=== PATIENT | female | born 1990 | race Caucasian/White ===

== ENCOUNTER 2022-01-25 06:18 | Emergency (ER) | payer MEDICAID, OTHER ==
--- NOTE | 2022-01-25 07:25 | ED Physician Documentation ---
PD HPI SKIN - Stated complaint Stated Complaint: BUG BITE LT FOOT - Chief complaint Chief Complaint: Wound - History obtained from History obtained from: Patient - History of Present Illness Timing - onset: How many days ago (4) Timing - duration: Days (4) Timing - details: Gradual onset, Still present Location: LLE Quality / character: Discolored, Crusted, Swelling, Draining Associated symptoms: Myalgias. No: Fever, Joint pain, Headache, Facial swelling, Dyspnea, Abd pain, N/V/D, Urinary sx Contributing factors: Insect bite /sting Similar symptoms before: Has not had sx before Recently seen: Not recently seen - Additional information Additional information: Previously well 31-year-old female has developed a tender area on the outer aspect of her left foot about 4 days ago. She felt this might be a spider bite it has become red and swollen the skin is broken open and drained. She has swelling out of her foot that is extending up into her ankle. She is having pain with weightbearing. She did not injure this foot otherwise. She does have shoes that she keeps in her hallway that have been present for some time before the last time she wore them. Review of Systems Constitutional: reports: Myalgias, Fatigue. denies: Fever, Chills Eyes: denies: Decreased vision Nose: denies: Congestion Throat: denies: Sore throat Respiratory: denies: Cough GI: denies: Nausea, Vomiting : denies: Dysuria Skin: reports: Bite / sting Musculoskeletal: reports: Extremity pain, Extremity swelling, Pain with weight bearing. denies: Neck pain, Back pain Neurologic: denies: Generalized weakness, Focal weakness, Numbness PD PAST MEDICAL HISTORY - Past Medical History Past Medical History: No - Past Surgical History Past Surgical History: No - Present Medications Home Medications: Ambulatory Orders Medication Instructions Recorded Confirmed Sulfamethox/Trimeth 800/160 1 each PO BID #14 tablet 01/25/22 [Bactrim Ds] cephALEXin [Keflex] 500 mg PO Q6H #28 cap 01/25/22 - Allergies Allergies/Adverse Reactions: Allergies Allergy/AdvReac Type Severity Reaction Status Date / Time No Known Drug Allergies Allergy Verified 01/25/22 06:30 - Social History Does the pt smoke?: No Smoking Status: Never smoker Does the pt drink ETOH?: No Does the pt have substance abuse?: No - Immunizations Immunizations are current?: Yes - POLST Patient has POLST: No PD ED PE NORMAL - Vitals Vital signs reviewed: Yes (Tachycardic and hypertensive) - General General: Alert and oriented X 3, No acute distress, Well developed/nourished - HEENT HEENT: Atraumatic, PERRL, EOMI - Respiratory Respiratory: No respiratory distress - Derm Derm: Normal color, Warm and dry, No rash - Extremities Extremities: Other (There is a 2 cm ulceration to the left foot over the midshaft of the left fifth metatarsal. There is surrounding erythema and erythema extending to the dorsum of the foot. There is no lymphangitic streaking. 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 She does have some cellulitic cellulitis extending onto the dorsum of the foot. She is administered Rocephin IM and we will place her on double antibiotic therapy with Keflex and Septra. I have asked the patient to use a warm compress and to return to the emergency department should she have progression of symptoms. A wound culture has been obtained. Departure - Departure Disposition: 01 Home, Self Care Clinical Impression: Abscess or cellulitis of foot Condition: Stable Instructions: ED Infec Skin Cellulitis, ED Staph Infec Abx Tx Only Follow-Up: [facility] [Provider Group] Prescriptions: Sulfamethox/Trimeth 800/160 [Bactrim Ds] 1 each PO BID #14 tablet cephALEXin [Keflex] 500 mg PO Q6H #28 cap Comments: Pamela, today it looks like you have an infection under the skin likely from a spider bite and this looks like it is draining adequately. Our expectations with treatment are for daily improvement. If you have worsening despite starting this treatment it is imperative to return to the hospital for treatment of cellulitis failing outpatient management. I have prescribed antibiotic for this infection and the medications have been e-scribed to [facility] in [place]. The antibiotic and your infection fighting cells only go where the blood goes and the recommendation is to use a warm compress (wash cloth soaked in warm water) for 10 minutes 2-3 times per day to encourage blood supply into the area.
[2022-01-25] MEDS: cefTRIAXone 1 GM VIAL IM STA (07:32)
[2022-01-25] MEDS: LIDOCAINE 1% 2 ML VIAL MC ONE (07:32)
[2022-01-25 07:48] VITALS: BP 132/80
== END 2022-01-25 07:48 | disposition home or self-care (01) ==
LOC: ED 06:18
DX: L03.116 Cellulitis of left lower limb (principal)
CPT/HCPCS: 87070; 87205; 96372; 99282; 99283

== ENCOUNTER 2022-04-15 17:09 | Outpatient (CLI) | payer MEDICAID ==
[2022-04-15 22:17] LABS: BACTERIAL VAGINOSIS DNA POSITIVE (NEGATIVE); CANDIDA GLABRATA DNA NEGATIVE (NEGATIVE); CANDIDA GROUP DNA NEGATIVE (NEGATIVE); CANDIDA KRUSEI DNA NEGATIVE (NEGATIVE); TRICHOMONAS VAGINALIS DNA POSITIVE (NEGATIVE)
[2022-04-16 00:10] LABS: NEISSERIA GONORRHOEAE DNA NEGATIVE (NEGATIVE)
[2022-04-16 00:12] LABS: CHLAMYDIA TRACHOMATIS DNA POSITIVE (NEGATIVE)
== END 2022-04-15 17:10 | disposition home or self-care (01) ==
LOC: LAB.N 17:09
PROVIDERS: ATTEND Nurse Practitioner
DX: Z11.3 Encounter for screening for infections with a predominantly sexual mode of transmission (principal)
CPT/HCPCS: 36415; 81514; 86592; 86695; 86696; 86803; 87389; 87491; 87591; 87661

== ENCOUNTER 2023-02-24 02:23 | Emergency (ER) | payer MEDICAID ==
[2023-02-24 02:34] VITALS: BP 129/78
== END 2023-02-24 03:28 | disposition left against medical advice (07) ==
LOC: ED 02:23
DX: Z53.21 Procedure and treatment not carried out due to patient leaving prior to being seen by health care provider (principal)

== ENCOUNTER 2023-08-16 19:10 | Outpatient (CLI) | payer MEDICAID ==
--- NOTE | 2023-08-17 09:00 | XRAY Report ---
PROCEDURE: Cervical Spine 2 View INDICATIONS: CERVICAL STRAIN WITH RADICULOPATHY TECHNIQUE: 4 view(s) of the cervical spine were acquired. COMPARISON: None. FINDINGS: Bones: No fractures or dislocations to the C7 level. The lateral masses of C1 appear intact on the odontoid view. No suspicious bony lesions. Moderate disc height loss at C5-6. Mild disc height loss at C4-5, C6-7. Soft tissues: No prevertebral soft tissue swelling. IMPRESSION: Mild to moderate, multilevel degenerative disease. Reviewed by: Elijah Rodriguez on 08/17/2023 8:58 AM PDT Approved by: Elijah Rodriguez on 08/17/2023 8:58 AM PDT Station ID: [id number]
== END 2023-08-16 23:59 | disposition home or self-care (01) ==
LOC: DI.S 19:10
PROVIDERS: ATTEND Physician Assistant Medical
DX: M47.812 Spondylosis without myelopathy or radiculopathy, cervical region (principal)

== ENCOUNTER 2023-09-17 14:03 | Outpatient (CLI) | payer MEDICAID ==
--- NOTE | 2023-09-17 15:26 | MRI Report ---
PROCEDURE: CERVICAL SPINE WO INDICATIONS: CERVICAL STRAIN TECHNIQUE: Noncontrast sagittal T1 spin echo and T2 fast spin echo, sagittal STIR, foraminal oblique sagittal T2 fast spin echo, and axial gradient echo or T2 fast spin echo through the cervical spine. COMPARISON: None. FINDINGS: Image quality: Excellent. Alignment and Curvature: Straightening of the normal cervical lordosis. Bone Marrow: Marrow demonstrates normal overall signal. Spinal Cord: Visualized spinal cord has normal size and signal. No cerebellar tonsillar herniation. Paraspinous Soft Tissues: No paravertebral masses. Prevertebral soft tissues are normal in thicknes s. C2-C3: Disc desiccation. No central canal stenosis. Mild facet and uncovertebral arthropathy. No charly roforaminal stenosis. C3-C4: Disc desiccation. No central canal stenosis. Facet and uncovertebral arthropathy. No neurofo raminal stenosis. C4-C5: Disc desiccation. Minimal posterior disc osteophyte complex. No central canal stenosis. Facet and uncovertebral arthropathy. Mild right neuroforaminal stenosis. No left neural foraminal stenosis . C5-C6: Disc desiccation and height loss. Moderate posterior disc osteophyte complex. Moderate centra l canal stenosis. Facet and uncovertebral arthropathy. Moderate severe left neuroforaminal stenosis. Mild right neuroforaminal stenosis. C6-C7: Disc desiccation. No central canal stenosis. Facet and uncovertebral arthropathy without neur oforaminal stenosis. C7-T1: No central canal or neuroforaminal stenosis. IMPRESSION: 1.Multilevel degenerative changes of the cervical spine, most pronounced at C5-C6 where there is mode rate central canal stenosis, moderate to severe left neuroforaminal stenosis and mild right neurofora joann stenosis. 2.Additional mild degenerative changes of the cervical spine as described above. Reviewed by: Eliel Georges MD on 09/17/2023 3:25 PM PST Approved by: Eliel Georges MD on 09/17/2023 3:25 PM PST Station ID: [id number]
== END 2023-09-17 14:04 | disposition home or self-care (01) ==
LOC: DI 14:03
PROVIDERS: ATTEND Physician Assistant Medical
DX: S16.1XXA Strain of muscle, fascia and tendon at neck level, initial encounter (principal); M47.22 Other spondylosis with radiculopathy, cervical region; M48.02 Spinal stenosis, cervical region

== ENCOUNTER 2024-02-07 08:00 | Outpatient (CLI) | payer MEDICAID ==
[2024-02-07 23:16] LABS: NEISSERIA GONORRHOEAE DNA NEGATIVE (NEGATIVE)
[2024-02-07 23:29] LABS: CHLAMYDIA TRACHOMATIS DNA POSITIVE (NEGATIVE)
[2024-02-07 23:30] LABS: TRICHOMONAS VAGINALIS DNA POSITIVE (NEGATIVE)
== END 2024-02-07 23:59 | disposition home or self-care (01) ==
LOC: LAB.WC 08:00
PROVIDERS: ATTEND Nurse Practitioner
DX: Z11.3 Encounter for screening for infections with a predominantly sexual mode of transmission (principal)
CPT/HCPCS: 87491; 87591; 87661